=== PATIENT | male | born 2000 ===

== ENCOUNTER 2021-01-26 19:19 | Emergency (ER) | payer SELFPAY ==
[2021-01-26 19:51] VITALS: BP 141/87
[2021-01-26] MEDS ORDERED: TETANUS,DIPH,PERTUSS(ACELL) VACCINE 0.5 ML SYRINGE IM ONE (20:02)
[2021-01-26] MEDS ORDERED: NEOMY 3.5 MG/BACIT 400 UNITS/POLY B 5000 UNITS/GM OINT PACKET TP ONE (20:02)
[2021-01-26] MEDS ORDERED: IBUPROFEN 600 MG TAB PO ONE (20:02)
--- NOTE | 2021-01-26 20:36 | Emergency Department Report ---
- General Chief Complaint: Wound/Laceration Stated Complaint: RT ARM LACERATION Source: patient Mode of arrival: Ambulatory Limitations: No Limitations - History of Present Illness Initial Comments: Patient is a 20-year-old male with no past medical history presents to the ED with complaint of acute onset painful bleeding right forearm laceration wound that he sustained 24 hours ago when playing around at a hotel room and then a glass window punctured his right forearm causing extensive bleeding laceration. Patient states that he cleaned the wound with alcohol and dressed it with a gauze. Patient states that he is not up-to-date with his tetanus vaccinations. Patient states that the pain and the bleeding has been been persistent since the injury occurred 24 hours ago. Patient denies dizziness, syncope, nausea, vomiting, head or neck injuries, fall, numbness and tingling or weakness of right arm, fever or chills. -: Sudden, hour(s) (24) Location: other (Right forearm open laceration wound) Extremity Location: Right: Forearm (right forearm) Place: home Patient Tetanus UTD: No (Given during this visit) Context: accidental Associated Symptoms: pain. denies: loss of feeling/numbness, suspect foreign body present, unable to move injured part, weakness followed by dizziness, nausea/vomiting, fever - Related Data Previous Rx's Medication Instructions Recorded Last Taken Type Ibuprofen [Motrin] 800 mg PO Q8HR PRN #20 tablet 01/26/21 Unknown Rx Sulfamethoxazole/Trimethoprim 1 each PO Q12H #20 tablet 01/26/21 Unknown Rx [Bactrim DS TAB] Allergies Allergy/AdvReac Type Severity Reaction Status Date / Time No Known Allergies Allergy Verified 01/26/21 19:43 ED Review of Systems ROS: Stated complaint: RT ARM LACERATION Other details as noted in HPI Constitutional: denies: chills, fever Eyes: denies: eye pain, eye discharge, vision change ENT: denies: ear pain, throat pain Respiratory: denies: cough, shortness of breath, wheezing Cardiovascular: denies: chest pain, palpitations Endocrine: no symptoms reported Gastrointestinal: denies: abdominal pain, nausea, diarrhea Genitourinary: denies: urgency, dysuria Musculoskeletal: arthralgia (right forearm bleeding laceration wound). denies: back pain, joint swelling Skin: other (open wound on right forearm with pain). denies: rash, lesions Neurological: denies: headache, weakness, paresthesias Psychiatric: denies: anxiety, depression Hematological/Lymphatic: denies: easy bleeding, easy bruising ED Past Medical Hx - Past Medical History Previous Medical History?: No - Surgical History Past Surgical History?: No - Social History Smoking Status: Current Every Day Smoker Substance Use Type: None - Medications Home Medications: Home Medications Medication Instructions Recorded Confirmed Last Taken Type Ibuprofen [Motrin] 800 mg PO Q8HR PRN #20 tablet 01/26/21 Unknown Rx Sulfamethoxazole/Trimethoprim 1 each PO Q12H #20 tablet 01/26/21 Unknown Rx [Bactrim DS TAB] ED Physical Exam - General Limitations: No Limitations General appearance: alert, in no apparent distress - Head Head exam: Present: atraumatic, normocephalic, normal inspection - Eye Eye exam: Present: normal appearance, PERRL, EOMI Pupils: Present: normal accommodation - ENT ENT exam: Present: normal exam, normal orophraynx, mucous membranes moist, TM's normal bilaterally, normal external ear exam - Neck Neck exam: Present: normal inspection, full ROM - Respiratory Respiratory exam: Present: normal lung sounds bilaterally. Absent: respiratory distress, wheezes, rales, rhonchi, stridor, chest wall tenderness, accessory muscle use, decreased breath sounds, prolonged expiratory, other - Cardiovascular Cardiovascular Exam: Present: normal rhythm, tachycardia, normal heart sounds. Absent: systolic murmur, diastolic murmur, rubs, gallop - GI/Abdominal GI/Abdominal exam: Present: soft, normal bowel sounds. Absent: tenderness, guarding, rebound, hyperactive bowel sounds, hypoactive bowel sounds, organomegaly - Extremities Exam Extremities exam: Present: normal inspection, full ROM, tenderness (Palpable localized mild right forearm tenderness due to an open 3 cm laceration wound), normal capillary refill - Back Exam Back exam: Present: normal inspection, full ROM. Absent: tenderness, CVA tenderness (R), CVA tenderness (L), muscle spasm, paraspinal tenderness, vertebral tenderness - Neurological Exam Neurological exam: Present: alert, oriented X3, CN II-XII intact, normal gait, reflexes normal - Psychiatric Psychiatric exam: Present: normal affect, normal mood - Skin Skin exam: Present: warm, dry, normal color, other (Open 3 cm laceration wound with trace blood on medial right forearm and localized mild tenderness). Absent: rash ED Course Vital Signs 01/26/21 19:44 Temperature 98.3 F Pulse Rate 113 H Respiratory 19 Rate Blood Pressure 141/87 O2 Sat by Pulse 100 Oximetry ED Medical Decision Making - Medical Decision Making This is a 20-year-old male with no past medical history presents to the ED with complaint of acute onset painful bleeding right forearm laceration wound that he sustained 24 hours ago when playing around at a hotel room and then a glass window punctured his right forearm causing extensive bleeding laceration. Patient states that he cleaned the wound with alcohol and dressed it with a gauze. Patient states that he is not up-to-date with his tetanus vaccinations. Patient states that the pain and the bleeding has been been persistent since the injury occurred 24 hours ago. In the ED, patient is alert and oriented x3 and is not in distress but anxious and scared and appears to be in pain. Patient is tachycardic but afebrile in triage. Patient was treated for pain and also received booster tetanus vaccination in the ED. The wound was cleaned with Betadine solution and normal saline and Neosporin ointment applied onto the wound. The wound was then approximated closed with Steri-Strips and dressed with 4 x 4 gauze and Kerlix. Patient was discharged home on pain medications and prophylactic antibiotics and advised to clean the wound with soap and water and dress it daily. Patient was advised to return to the ED immediately if symptoms get worse or follow-up with his primary care physician in 7 to 10 days for reevaluation - Differential Diagnosis forearm laceration; Puncture wound Critical care attestation.: If time is entered above; I have spent that time in minutes in the direct care of this critically ill patient, excluding procedure time. ED Disposition Clinical Impression: Laceration of right forearm without complication Qualifiers: Encounter type: initial encounter Qualified Code(s): S51.811A - Laceration without foreign body of right forearm, initial encounter Disposition: 01 HOME / SELF CARE / HOMELESS Is pt being admited?: No Does the pt Need Aspirin: No Condition: Stable Instructions: Laceration Care, Adult, [id number], Nonsutured Laceration Care Additional Instructions: Take medication with food, drink plenty of fluids and follow-up with your primary care physician in 7 to 10 days for reevaluation. Return to the ED immediately if symptoms get worse. Prescriptions: Sulfamethoxazole/Trimethoprim [Bactrim DS TAB] 1 each PO Q12H #20 tablet Ibuprofen [Motrin] 800 mg PO Q8HR PRN #20 tablet PRN Reason: Pain , Severe (7-10) Referrals: [facility] [Provider Group] - 7-10 days Time of Disposition: 20:36 Print Language: [place]
== END 2021-01-26 21:02 | disposition home or self-care (01) ==
LOC: ED 19:19
DX: S51.811A Laceration without foreign body of right forearm, initial encounter (principal); F17.200 Nicotine dependence, unspecified, uncomplicated; W25.XXXA Contact with sharp glass, initial encounter; Y93.89 Activity, other specified; Y92.89 Other specified places as the place of occurrence of the external cause; Y99.8 Other external cause status
CPT/HCPCS: 90471; 90715; 99283; A6250